=== PATIENT | female | born 1945 | race Caucasian/White ===

== ENCOUNTER → 2018-06-14 21:21 | Outpatient (CLI) | payer OTHER, SELFPAY ==
[2018-06-14 14:48] VITALS: BMI 28.3
[2018-06-14 21:35] LABS: Absolute Lymphocyte Count 0.56 X10^3/ul (0.83-4.51); Absolute Neutrophil Count 2.8 X10^3/uL (2.0-7.7); Basophil# 0.03 X10^3/uL; Basophil% 0.7 % (0-1); Eosinophil# 0.24 X10^3/uL; Eosinophils% 5.7 % (0-5); Hematocrit 40.3 % (37-47); Hemoglobin 12.9 g/dl (12.0-15.0); Lymphocyte # 0.56 X10^3/ul (4.0); Lymphocyte % 13.3 % (19-41); Mean Corpuscular Hgb 29.6 pg (27.0-32.0); Mean Corpuscular Volume 92.4 fL (81-99); Mean Platelet Vol. 12.6 fl (6.2-12.0); Monocyte# 0.62 X10^3/uL; Monocyte% 14.8 % (0-10); Neutrophil # 2.75 X10^3/uL (2.7-7.7); Neutrophil % 65.5 % (47-70); Platelet Count 151 K/mm3 (150-450); RBC Distribution Width CV 13.5 % (11.6-14.6); RBC Distribution Width SD 45.5 fl (35.1-43.9); Red Blood Count 4.36 M/mm3 (4.2-5.4); White Blood Count 4.2 K/mm3 (4.4-11.0)
[2018-06-14 21:37] LABS: Differential Indicated SCAN CRITERIA MET; POSITIVE COUNT NO; POSITIVE DIFFERENTIAL YES; POSITIVE MORPHOLOGY NO
[2018-06-14 21:57] LABS: Differential Comment SCANNED
[2018-06-14 22:27] LABS: ALB/GLOB Ratio 1.1 RATIO (0.9-2.4); AST(SGOT) 32 U/L (15-37); Alanine Aminotransfer ALT/SGPT 37 U/L (13-56); Albumin, Serum 3.8 g/dL (3.2-5.0); Alkaline Phosphatase 97 U/L (45-117); Anion Gap 6 (5-15); BUN 21 mg/dL (7-18); BUN/Creat Ratio 25.1 RATIO (10-20); Calcium,Total 8.8 mg/dL (8.5-10.1); Chloride 106 mmol/L (98-107); Cholesterol 203 mg/dL (200); Creatinine, Serum 0.84 mg/dL (0.55-1.02); EST Glomerular Filtration Rate 71 mL/min (>60); Est Glom Filt Rate - Afr Amer 86 mL/min (>60); Globulin 3.4 g/dL (2.2-4.2); Glucose 100 mg/dL (74-106); High Density Lipoprotein 64 mg/dL; Potassium 4.4 mmol/L (3.5-5.1); Protein, Total 7.2 g/dL (6.4-8.2); Sodium Level 138 mmol/L (136-145); Thyroid Stim Hormone (TSH) 0.67 uIU/mL (0.358-3.74); Triglycerides 162 mg/dL; Very Low Density Lipoprotein 32 mg/dL (5-40)
== END ==
PROVIDERS: Referring Provider Nurse Practitioner; Visit Provider Nurse Practitioner
DX: E03.9 Hypothyroidism, unspecified (principal); I10 Essential (primary) hypertension; E78.5 Hyperlipidemia, unspecified
CPT/HCPCS: 80053; 80061; 84443; 85025

== ENCOUNTER → 2020-08-27 | Outpatient (CLI) | payer MEDICARE, SELFPAY ==
[2020-08-27 15:14] VITALS: BMI 27.8
[2020-08-27 22:33] LABS: ALB/GLOB Ratio 0.9 RATIO (0.9-2.4); AST(SGOT) 20 U/L (15-37); Alanine Aminotransfer ALT/SGPT 23 U/L (13-56); Albumin, Serum 3.7 g/dL (3.2-5.0); Alkaline Phosphatase 100 U/L (45-117); Anion Gap 7 (5-15); BUN 22 mg/dL (7-18); BUN/Creat Ratio 31.9 RATIO (10-20); Calcium,Total 9.5 mg/dL (8.5-10.1); Chloride 108 mmol/L (98-107); Cholesterol 245 mg/dL (200); Creatinine, Serum 0.69 mg/dL (0.55-1.02); EST Glomerular Filtration Rate 88 mL/min (>60); Est Glom Filt Rate - Afr Amer 107 mL/min (>60); Globulin 3.9 g/dL (2.2-4.2); Glucose 142 mg/dL (74-106); High Density Lipoprotein 77 mg/dL; Potassium 4.1 mmol/L (3.5-5.1); Protein, Total 7.6 g/dL (6.4-8.2); Sodium Level 141 mmol/L (136-145); Thyroid Stim Hormone (TSH) 0.41 uIU/mL (0.358-3.74); Triglycerides 98 mg/dL; Very Low Density Lipoprotein 20 mg/dL (5-40)
== END | disposition home or self-care (01) ==
PROVIDERS: PCP Nurse Practitioner; Referring Provider Nurse Practitioner; Visit Provider Nurse Practitioner
DX: I10 Essential (primary) hypertension (principal); E03.9 Hypothyroidism, unspecified
CPT/HCPCS: 80053; 80061; 84443